=== PATIENT | male | born 1955 | race African-American/Black ===

== ENCOUNTER 2018-02-04 13:25 | Emergency (ER) | payer OTHER ==
[~2018-02-04] VITALS: Ht 185.4 cm; Wt 143.3 kg
--- NOTE | ~2018-02-04 | EKG ---
[place] [address] [facility] [place] [employer] [address] ELECTROCARDIOGRAM REPORT Name: BRYAN FRANCE Room #: DEP BILL Christie#: [id number] Admission: 02/04/18 Attend Phys: Discharge: 02/04/18 Date of : 57 Report #: [id number] THIS REPORT FOR: //name// [facility] ED Test Date: 2018-02-04 Test Time: 13:35:33 Pat Name: BRYAN FRANCE Department: Room: Gender: M Mate Ship: HENRRY : 1955 Requested By: America Shi Order Number: [id number] MD: Gurmeet Downey Measurements Intervals [place] Rate: 110 P: 46 OK: 190 QRS: 15 QRSD: 69 T: 1 QT: 347 QTc: 470 Interpretive Statements Sinus tachycardia Abnormal R-wave progression, early transition Borderline T abnormalities, anterior leads No previous ECG available for comparison Electronically Signed On 02-04-2018 21:29:15 CDT by Gurmeet Downey [email or web address] <ELECTRONICALLY SIGNED> By: Gurmeet Downey MD 02/04/18 [id number] MD STEWART Ball
[2018-02-04] MEDS ORDERED: NEURONTIN 300300 M1 PO (13:37)
[2018-02-04] MEDS ORDERED: METFORMIN HCL500 MG PO (13:37)
[2018-02-04] MEDS ORDERED: HYDROCHLOROTHIA25 M2 PO (13:38)
[2018-02-04] MEDS ORDERED: GLIPIZIDE 10 MG10 MG PO (13:38)
[2018-02-04] MEDS ORDERED: ONGLYZA5 MG PO (13:39)
[2018-02-04] MEDS ORDERED: COLACE100 MG PO (13:39)
[2018-02-04] MEDS ORDERED: IRON325 PO (13:39)
[2018-02-04] MEDS ORDERED: WELLBUTRIN 100100 MG PO (13:40)
[2018-02-04] MEDS ORDERED: ALL DAY ALLERGY10 M3 PO (13:40)
[2018-02-04] MEDS ORDERED: VITAMIN D2000 UNIT PO (13:41)
[2018-02-04 13:58] LABS: BASOPHILS 0.7 % (0.0-2.0); EOSINOPHILS 1.2 % (0.0-3.0); HEMATOCRIT 34.7 % (42.0-52.0); HEMOGLOBIN 11.8 gm/dL (14.0-18.0); MCH 26.9 pg (26.0-34.0); MCHC 33.9 g/dL (28.0-37.0); MCV 79.2 fL (80.0-100.0); MONOCYTES 7.2 % (1.0-8.0); PLATELET COUNT 227 thou/uL (150-400); POLYS 69.9 % (36.0-66.0); RBC 4.39 mil/uL (4.50-6.00); WBC 5.7 thou/uL (4.0-11.0)
[2018-02-04 14:02] LABS: ANION GAP 11 mmol/L (7-16); BUN 21 mg/dL (7-18); CALCIUM 9.7 mg/dL (8.5-10.1); CHLORIDE 103 mmol/L (98-107); CO2 27 mmol/L (21-32); CREATININE 1.8 mg/dL (0.7-1.3); GLUCOSE 256 mg/dL (74-106); POTASSIUM 3.1 mmol/L (3.5-5.1); SODIUM 141 mmol/L (136-145)
[2018-02-04 14:11] LABS: TROPONIN-I < 0.04 ng/mL (<0.06)
[2018-02-04 14:55] VITALS: BP 121/86
== END 2018-02-04 15:21 | disposition home or self-care (01) ==
LOC: ER 13:25
PROVIDERS: Emergency Medicine
DX: I10 Essential (primary) hypertension (principal); E78.00 Pure hypercholesterolemia, unspecified; E11.40 Type 2 diabetes mellitus with diabetic neuropathy, unspecified